=== PATIENT | male | born 1985 | race Caucasian/White ===

== ENCOUNTER 2023-11-01 11:42 | Emergency (ER) | payer OTHER, SELFPAY ==
[2023-11-01 11:52] VITALS: BP 148/92; PULSE 107; RESP 16; TEMP 37.1; O2SAT 97; BMI 31.1
[2023-11-01 12:17] LABS: Basophils # 0.1 10^3/uL (0.0-0.1); Basophils % 0.7 %; Eosinophils # 0.2 10^3/uL (0.0-0.8); Eosinophils % 2.4 %; Hematocrit 49.3 % (37-53); Lymphocytes # 2.8 10^3/uL (0.8-4.8); Lymphocytes % 34.6 %; Mean Corpuscular HGB Conc 34.5 g/dL (30-55); Mean Corpuscular Hemoglobin 31.3 pg (27-33); Mean Corpuscular Volume 90.6 fl (82-101); Mean Platelet Volume 10.4 fL (7.4-10.4); Monocytes # 0.6 10^3/uL (0.2-0.9); Monocytes % 7.9 %; Neutrophils # 4.22 10^3/uL (1.8-7.7); Neutrophils % 52.7 %; Nucleated Red Blood Cells % 0 %; Platelet Count 177 10^3/cmm (157-399); Red Blood Count 5.44 10^6/uL (3.85-5.65); Red Cell Distribution Width 12.5 % (12.1-15.1); White Blood Count 8.01 10^3/uL (3.29-11.43)
[2023-11-01 12:36] LABS: Alanine Aminotransferase 331 U/L (0-41); Albumin Level 4.4 g/dL (3.5-5.2); Alkaline Phosphatase 98 U/L (40-130); Anion Gap 13.8 (5-19); Aspartate Amino Transferase 272 U/L (0-40); Blood Urea Nitrogen 8 mg/dL (6-20); Calcium 9.8 mg/dL (8.5-10.5); Carbon Dioxide 29 mmol/L (22-29); Chloride 98 mmol/L (98-107); Globulin 3.7 g/dL (1.3-4.6); Glomerular Filtration Rate 189.2 mL/min (90-130); Glucose 115 mg/dL (65-115); Lipase 39 U/L (13-60); Osmolality Calculated 283 mOsm/kg (285-295); Potassium 3.8 mmol/L (3.5-5.1); Sodium 137 mmol/L (136-145); Total Bilirubin 0.5 mg/dL (0.15-1.2); Total Protein 8.1 g/dL (6.6-8.7)
--- NOTE | 2023-11-01 13:00 | W.ED.ABDPA2 ---
HPI - Abdominal Pain General: Chief Complaint: Abdominal Pain Stated Complaint: ABD pain Time Seen by Provider: 11/01/23 13:00 Course Vital Signs: Vital signs: Vital Signs Temperature 98.7 F 11/01/23 11:52 Pulse Rate 107 H 11/01/23 11:52 Respiratory Rate 16 11/01/23 11:52 Blood Pressure 148/92 11/01/23 11:52 Pulse Oximetry 97 11/01/23 11:52 Oxygen Delivery Me thod Room Air 11/01/23 11:52 MDM - Abdominal Pain Lab Data 11/01/23 12:13 11/01/23 12:13 Labs/Radiology: Laboratory Results WBC 8.01 10^3/uL (3.29-11.43) 11/01/23 12:13 RBC 5.44 10^6/uL (3.85-5.65) 11/01/23 12:13 Hgb 17.00 g/dL (11.27-16.99) H 11/01/23 12:13 Hct 49.3 % (37-53) 11/01/23 12:13 MCV 90.6 fl (82-101) 11/01/23 12:13 MCH 31.3 pg (27-33) 11/01/23 12:13 MCHC 34.5 g/dL (30-55) 11/01/23 12:13 RDW 12.5 % (12.1-15.1) 11/01/23 12:13 Plt Count 177 10^3/cmm (157-399) 11/01/23 12:13 MPV 10.4 fL (7.4-10.4) 11/01/23 12:13 Neut % (Auto) 52.7 % 11/01/23 12:13 Lymph % (Auto) 34.6 % 11/01/23 12:13 [place] % (Auto) 7.9 % 11/01/23 12:13 Eos % (Auto) 2.4 % 11/01/23 12:13 Baso % (Auto) 0.7 % 11/01/23 12:13 Neut # (Auto) 4.22 10^3/uL (1.8-7.7) 11/01/23 12:13 Lymph # (Auto) 2.8 10^3/uL (0.8-4.8) 11/01/23 12:13 [place] # (Auto) 0.6 10^3/uL (0.2-0.9) 11/01/23 12:13 Eos # (Auto) 0.2 10^3/uL (0.0-0.8) 11/01/23 12:13 Baso # (Auto) 0.1 10^3/uL (0.0-0.1) 11/01/23 12:13 Nucleated RBC % (auto) 0 % 11/01/23 12:13 Nucleated RBCs # 0.0 /100WBC 11/01/23 12:13 Sodium 137 mmol/L (136-145) 11/01/23 12:13 Potassium 3.8 mmol/L (3.5-5.1) 11/01/23 12:13 Chloride 98 mmol/L (98-107) 11/01/23 12:13 Carbon Dioxide 29 mmol/L (22-29) 11/01/23 12:13 Anion Gap 13.8 (5-19) 11/01/23 12:13 BUN 8 mg/dL (6-20) 11/01/23 12:13 Creatinine 0.5 mg/dL (0.7-1.2) L 11/01/23 12:13 GFR Calculation 189.2 mL/min (90-130) H 11/01/23 12:13 Glucose 115 mg/dL (65-115) 11/01/23 12:13 Calculated Osmolality 283 mOsm/kg (285-295) L 11/01/23 12:13 Calcium 9.8 mg/dL (8.5-10.5) 11/01/23 12:13 Total Bilirubin 0.5 mg/dL (0.15-1.2) 11/01/23 12:13 AST 272 U/L (0-40) H 11/01/23 12:13 ALT 331 U/L (0-41) H 11/01/23 12:13 Alkaline Phosphatase 98 U/L (40-130) 11/01/23 12:13 Total Protein 8.1 g/dL (6.6-8.7) 11/01/23 12:13 Albumin 4.4 g/dL (3.5-5.2) 11/01/23 12:13 Globulin 3.7 g/dL (1.3-4.6) 11/01/23 12:13 Lipase 39 U/L (13-60) 11/01/23 12:13 Discharge Plan Discharge Condition: Stable Coding Level of Care Code ED [employer] [facility]
--- NOTE | 2023-11-01 13:11 | ED_ITS ---
HPI - Abdominal Pain 2 General: Chief Complaint: Abdominal Pain Stated Complaint: ABD pain Time Seen by Provider: 11/01/23 13:00 History of Present Illness: 37-year-old male presents emergency depa rtment with complaints of left and right upper abdominal pain. He states been going on for 3 days. He states he does have intermittent nausea without vomiting. He states it feels like a pressure type pain that he describes as a 3 out of 10 and fullness. He states that he does drink approximately 6-8 shots of whiskey every night and has noticed some intermittent abdominal swelling. He states he has not noticed any change in his skin color or his eye color. He states he does have a history of substance abuse besides alcohol and is currently taking buprenorphine. He does indicate that he has a desire to stop drinking alcohol but is unsure exactly how to do that as he knows and endorses that alcohol is very addicting. Associated Symptoms: Reports nausea and other (Abdominal swelling) Review of Systems 2 General: Reports: 10 or more systems reviewed and unremarkable except in HPI and below GI: Reports: abdominal pain, nausea and other (Abdominal swelling) Physical Exam 2 Narrative: EXAM NARRATIVE: Constitutional: the patient appears well nourished and of normal development. Vital signs as documented. No acute distress at present. Alert and oriented-to person, place, time and situation. Head, eyes, ears, nose, mouth, throat: Normocephalic, atraumatic. Pupils-equal, round, reactive to light. No scleral icterus. Normal-appearing external ears. Normal appearing nasal turbinates, no drainage. No obvious oral lesions, posterior oropharynx without erythema or exudates. Neck: Supple, trachea is midline, no lymphadenopathy, no jugular venous distension, thyromegaly, or carotid bruits. Carotid upstrokes are brisk bilaterally. Lungs: clear to auscultation to all lung renteria. Symmetrical rise and fall of chest, no obvious signs of increased work of breathing at present. Cardiac: Regular rate and rhythm, positive S1, S2. No murmurs, rubs or gallops that I can appreciate Abdomen: Soft, non-tender to palpation, normal active bowel sounds to all quadrants. No palpable masses, no organomegaly and abdominal bruits. Slightly distended abdomen. Extremities: 2+ pulses in the upper extremities that are equal bilaterally, 2+ pulses in the lower extremities that are equal bilaterally. Non-edematous. Moves all extremities well, sensation to all extremities are noted. Skin: Warm, dry, intact. Course 2 Vital Signs: Vital signs: Vital Signs Temperature 98.7 F 11/01/23 11:52 Pulse Rate 107 H 11/01/23 11:52 Respiratory Rate 16 11/01/23 11:52 Blood Pressure 136/69 11/01/23 15:24 Pulse Oximetry 92 11/01/23 15:24 Oxygen Delivery Me thod Room Air 11/01/23 11:52 MDM - Abdominal Pain Medical Decision Making 37-year-old male presents emergency department with complaints of abdominal pain he does have longstanding and daily alcohol use and previous substance abuse for which she is receiving treatment. Complaints of epigastric abdominal pain and distention. I will obtain a CBC, CMP, lipase and CT scan of the abdomen pelvis. To evaluate his liver function I will obtain a PT/INR PTT. Differential diagnosis includes pancreatitis, portal vein thrombosis, hepatic cirrhosis. Medical Records I reviewed the patient's medical records. Lab Data I reviewed the patient's lab results. 11/01/23 12:13 11/01/23 12:13 Labs/Radiology: Laboratory Results WBC 8.01 10^3/uL (3.29-11.43) 11/01/23 12:13 RBC 5.44 10^6/uL (3.85-5.65) 11/01/23 12:13 Hgb 17.00 g/dL (11.27-16.99) H 11/01/23 12:13 Hct 49.3 % (37-53) 11/01/23 12:13 MCV 90.6 fl (82-101) 11/01/23 12:13 MCH 31.3 pg (27-33) 11/01/23 12:13 MCHC 34.5 g/dL (30-55) 11/01/23 12:13 RDW 12.5 % (12.1-15.1) 11/01/23 12:13 Plt Count 177 10^3/cmm (157-399) 11/01/23 12:13 MPV 10.4 fL (7.4-10.4) 11/01/23 12:13 Neut % (Auto) 52.7 % 11/01/23 12:13 Lymph % (Auto) 34.6 % 11/01/23 12:13 [place] % (Auto) 7.9 % 11/01/23 12:13 Eos % (Auto) 2.4 % 11/01/23 12:13 Baso % (Auto) 0.7 % 11/01/23 12:13 Neut # (Auto) 4.22 10^3/uL (1.8-7.7) 11/01/23 12:13 Lymph # (Auto) 2.8 10^3/uL (0.8-4.8) 11/01/23 12:13 [place] # (Auto) 0.6 10^3/uL (0.2-0.9) 11/01/23 12:13 Eos # (Auto) 0.2 10^3/uL (0.0-0.8) 11/01/23 12:13 Baso # (Auto) 0.1 10^3/uL (0.0-0.1) 11/01/23 12:13 Nucleated RBC % (auto) 0 % 11/01/23 12:13 Nucleated RBCs # 0.0 /100WBC 11/01/23 12:13 Sodium 137 mmol/L (136-145) 11/01/23 12:13 Potassium 3.8 mmol/L (3.5-5.1) 11/01/23 12:13 Chloride 98 mmol/L (98-107) 11/01/23 12:13 Carbon Dioxide 29 mmol/L (22-29) 11/01/23 12:13 Anion Gap 13.8 (5-19) 11/01/23 12:13 BUN 8 mg/dL (6-20) 11/01/23 12:13 Creatinine 0.5 mg/dL (0.7-1.2) L 11/01/23 12:13 GFR Calculation 189.2 mL/min (90-130) H 11/01/23 12:13 Glucose 115 mg/dL (65-115) 11/01/23 12:13 Calculated Osmolality 283 mOsm/kg (285-295) L 11/01/23 12:13 Calcium 9.8 mg/dL (8.5-10.5) 11/01/23 12:13 Total Bilirubin 0.5 mg/dL (0.15-1.2) 11/01/23 12:13 AST 272 U/L (0-40) H 11/01/23 12:13 ALT 331 U/L (0-41) H 11/01/23 12:13 Alkaline Phosphatase 98 U/L (40-130) 11/01/23 12:13 Total Protein 8.1 g/dL (6.6-8.7) 11/01/23 12:13 Albumin 4.4 g/dL (3.5-5.2) 11/01/23 12:13 Globulin 3.7 g/dL (1.3-4.6) 11/01/23 12:13 Lipase 39 U/L (13-60) 11/01/23 12:13 Urine Color Dark yellow (Yellow) 11/01/23 13:20 Urine Appearance Clear (CLEAR) 11/01/23 13:20 Urine pH 8 (5-7) H 11/01/23 13:20 Ur Specific Mobile 1.010 (1.005-1.030) 11/01/23 13:20 Urine Protein Neg (Negative) 11/01/23 13:20 Urine Glucose (UA) Norm (Normal) 11/01/23 13:20 Urine Ketones Negative (Negative) 11/01/23 13:20 Urine Blood Neg (Negative) 11/01/23 13:20 Urine Nitrate Negative (Negative) 11/01/23 13:20 Urine Bilirubin Neg (Negative) 11/01/23 13:20 Prot Sulfosalicylic Acd Negative (Negative) 11/01/23 13:20 Urine Urobilinogen Norm mg/dL (Negative) 11/01/23 13:20 Ur Leukocyte Esterase Negative (Negative) 11/01/23 13:20 Ethyl Alcohol < 10 mg/dL (0-10) 11/01/23 12:13 All radiology interpretation(s) finalized by discharge Discharge Plan Discharge Patient Disposition: Home Clinical Impression: Acute alcoholic gastritis without hemorrhage, Abdominal pain, Alcohol dependence Condition: Stable Prescriptions: New Carafate 1 gram tablet 1 g PO TID 28 Days Qty: 84 0RF pantoprazole 40 mg tablet,delayed release (DR/EC) 40 mg PO DAILY 56 Days Qty: 60 0RF Discharge Orders: Discharge ED (Routine); Ordered 11/01/23 Ordered By: Jung Rain Discharge Diet: Advance as tolerated Discharge Activity: Resume usual activity Patient Instructions: Abdominal Pain (ED), Opioid Safety, Pain Management Activity Restrictions/Additional Instructions: Activity Restrictions/Additional Instructions: Thank you [facility] your healthcare needs today. Please realize that you were seen in the Emergency Department and that we are providing you with an emergency medical screening exam and this may not be a complete and all inclusive of all the testing and or medical work-up that you may need to determine your ailment or severity of your illness. It is very important that you follow-up as instructed with your Primary care provider or Specialist for additional evaluation and to discuss your medical treatment plan. You may return to the Emergency Department should you have concerns or if your condition changes or worsens in any way. You may contact the crisis center to follow-up for assistance in helping you to stop drinking alcohol. Coding Level of Care Code ED [employer] [facility]
[2023-11-01] MEDS: sodium chloride 0.9% 1,000 ML 999 ML IV (13:24)
[2023-11-01 13:33] LABS: Add Urine Microscopic? NO; Charge for UA Resulting for Rev
[2023-11-01 13:37] LABS: Alcohol Level < 10 mg/dL (0-10)
[2023-11-01 13:49] LABS: Bilirubin Urine Neg (Negative); Blood Urine Neg (Negative); Glucose Urine UA Norm (Normal); Ketones Urine Negative (Negative); Leukocyte Esterase Urine Negative (Negative); Nitrate Urine Negative (Negative); Protein Urine Neg (Negative); Sulfosalicylic Acid Urine Negative (Negative); Urine Appearance Clear (CLEAR); Urine Color Dark Yellow (Yellow); Urobilinogen Urine Norm (Negative); pH Urine 8 (5-7)
--- NOTE | 2023-11-01 14:50 | CT_ITS ---
WS: [id number] CT abdomen pelvis w con* [id number] REASON FOR EXAM: Abd distension IV CONTRAST ADMINISTERED: 100 mL of Omnipaque 350. TOTAL EXAM DLP: 969.[address] scans at [facility] use at least one of these dose optimization techniques: automat ed exposure control; mA and/or kV adjustment per patient size (includes targeted exams where dose is matched to clinical indication); or iterative reconstruction. FINDINGS: ABDOMEN: Chronic interstitial changes in the left lung base. Liver, spleen, pancreas, and gallbladder are unremarkable. Adrenals and kidneys are unremarkable. No hydronephrosis, calculi or mass. Normal abdominal aorta. No abdominal mass or adenopathy. No focal fluid or free fluid collection. Normal retrocecal appendix containing air. No bowel abnormality. PELVIS: No distal ureteral calculi. Normal bladder. No mass, adenopathy, free fluid, or focal fluid collection. Bone: Lumbar spine appears normal. Bony pelvis is unremarkable. IMPRESSION: No acute abdominal or pelvic abnormality.
[2023-11-01] MEDS: iohexol 350 mg/mL 500 mL Btl (per mL) IV (14:58)
[2023-11-01 15:24] VITALS: BP 136/69; O2SAT 92
== END 2023-11-01 16:01 | disposition home or self-care (01) ==
PROVIDERS: Physician Assistant; Emergency Provider Internal Medicine
DX: K29.20 Alcoholic gastritis without bleeding (principal); F10.20 Alcohol dependence, uncomplicated
CPT/HCPCS: 36415; 74177; 80053; 80307; 81003; 83690; 85025; 99285; J7030; Q9967